=== PATIENT | female | born 1995 | race African-American/Black ===

== ENCOUNTER 2020-01-14 17:26 | Emergency (ER) | payer OTHER ==
[~2020-01-14] VITALS: Ht 165.1 cm; Wt 71.0 kg
[2020-01-14] MEDS ORDERED: SODIUM CHLORIDE 0.9% 1,000 ML IV ONE (18:22)
[2020-01-14 18:54] LABS: BASOPHILS % 0.5 % (0.0-2.0); EOSINOPHILS % 2.4 % (0.0-5.0); HEMOGLOBIN. 12.3 g/dL (12.0-16.0); LYMPHOCYTES % 27.2 % (20.0-50.0); MEAN CORPUSCULAR VOLUME 83.1 fL (81.0-99.0); MEAN PLATELET VOLUME 7.9 fl (7.4-10.4); MONOCYTES % 9.7 % (2.0-8.0); NEUTROPHILS % 60.2 % (40.0-76.0); PLATELET 265 x1000/uL (130-400); RED BLOOD CELL COUNT 4.57 mill/uL (4.2-5.4); RED CELL DISTRIBUTION WIDTH 14.4 % (11.6-14.6)
[2020-01-14 19:00] LABS: CHLORIDE 108 mEq/L (98-107)
[2020-01-14 19:10] LABS: CLARITY URINE CLEAR (CLEAR); COLOR URINE DARK YELLOW (YELLOW); KETONES URINE 1+ (NEGATIVE); LEUKOCYTE ESTERASE URINE TRACE (NEGATIVE); NITRITE URINE NEGATIVE (NEGATIVE); OCCULT BLOOD URINE NEGATIVE (NEGATIVE); PH URINE 5.5 (4.5-8.0); PROTEIN URINE TRACE (NEGATIVE); SPECIFIC GRAVITY URINE 1.032 (1.005-1.030)
[2020-01-14 19:11] LABS: B-HCG QUANTITATIVE < 1 mIU/mL (<3)
[2020-01-14 19:32] LABS: *AMPHETAMINES SCREEN URINE NEGATIVE (NEGATIVE); *BARBITURATES SCREEN URINE NEGATIVE (NEGATIVE); *BENZODIAZEPINES SCREEN URINE NEGATIVE (NEGATIVE)
[2020-01-14 19:33] LABS: *COCAINE SCREEN URINE NEGATIVE (NEGATIVE); METHADONE URINE SCREEN NEGATIVE (NEGATIVE); OPIATES URINE SCREEN NEGATIVE (NEGATIVE); PHENCYCLIDINE URINE SCREEN NEGATIVE (NEGATIVE)
[2020-01-14 19:38] LABS: CANNABINOID URINE SCREEN PRESUMTIVE POSITIVE (NEGATIVE)
[2020-01-14 22:15] VITALS: BP 110/85
== END 2020-01-14 22:20 | disposition home or self-care (01) ==
LOC: ER 17:26
DX: M54.2 Cervicalgia (principal); N39.0 Urinary tract infection, site not specified; R10.2 Pelvic and perineal pain; N83.209 Unspecified ovarian cyst, unspecified side; M79.672 Pain in left foot; M79.671 Pain in right foot; Y08.89XA Assault by other specified means, initial encounter; Y93.9 Activity, unspecified; Y92.9 Unspecified place or not applicable
CPT/HCPCS: 36415; 72125; 73620; 76830; 76856; 80053; 80305; 81003; 81025; 84702; 85025; 86850; 86900; 86901; 93005; 99285; J7030